=== PATIENT | female | born 1985 | race Caucasian/White ===

== ENCOUNTER 2020-04-01 08:34 | Day surgery (SDC) | payer BC, MEDICAID, SELFPAY ==
[2020-04-01] VITALS (9 sets, daily range): BP systolic 108–118; BP diastolic 61–78; PULSE 58–78; RESP 16–18; TEMP 36.9; O2SAT 95–100; BMI 37.5
--- NOTE | ~2020-04-01 | CT_ITS ---
PROCEDURE: CT-GUIDED BIOPSY CLINICAL INFORMATION: Mastocytosis. COMPARISON: None TECHNIQUE: Following explaining CT fluoroscopy-guided bone marrow biopsy right iliac crest procedure, benefits and risk, a written consent was obtained. Patient was placed prone on fluoroscopy table and preliminary CT imaging was obtained. Lead markers were placed midline along the posterior pelvis and repeat CT imaging was performed. An optimal marker was selected, marked on the skin and area was cleaned and draped in the usual sterile manner. 1% lidocaine was injected at puncture site. A 14-gauge guide needle was advanced through a skin incision to the posterior right iliac crest. The needle was then drilled with a mechanical drill into the bone marrow. Two bone marrow aspirates were obtained as per pathology and handed to the cytotech. Subsequently a coaxial 16-gauge needle was drilled into the bone marrow and core biopsy was performed. Subsequently stylet was reintroduced and the needle withdrawn. Patient tolerated procedure extremely well. Conscious sedation was administered with Versed and fentanyl. Patient was monitored for [address] examination was performed using dose optimization techniques as appropriate, variously including the following: *Automated exposure control *Adjustment of mA and/or kV according to patient size (this includes techniques or standardized protocols for targeted exams where dose is matched to indication/reason for exam; i.e. extremities or head) *Use of iterative reconstruction technique DLP: 324 mGy-cm FINDINGS: On preliminary CT imaging there is no bony abnormality involving the visualized lower lumbar spine, sacrum and iliac bones. The soft tissues are normal. The bladder is unremarkable. Successful CT fluoroscopy-guided right posterior iliac bone marrow biopsy and aspirate performed with a mechanical drill. There were no immediate complications. CT/CT biopsy bone marrow IMPRESSION: Successful CT fluoroscopy-guided right posterior iliac bone marrow biopsy and aspirate was performed.
[2020-04-01 09:39] LABS: MANUAL DIFF FLAG NO
[2020-04-01 09:42] LABS: Basophils Percent Auto 0.4 % (0-2); Eosinophils Absolute Auto 0.1 X10*3/uL (0.0-0.4); Eosinophils Percent Auto 1.6 % (0-4); Hemoglobin 12.9 g/dl (12.0-16.0); Imm Gran Abs Auto 0.01 X10*3/uL (0.00-0.03); Imm Gran Pct Auto 0.2 % (0.0-0.4); Lymphocytes Absolute Auto 1.5 X10*3/uL (1.2-4.9); Lymphocytes Percent Auto 26.5 % (20-40); Mean Corpuscular HGB Conc 33.9 g/dl (31.0-35.0); Mean Corpuscular Hemoglobin 30.7 pg (27.0-33.0); Mean Corpuscular Volume 90.5 fL (80-98); Monocytes Absolute Auto 0.5 X10*3/uL (0.1-1.2); Monocytes Percent Auto 8.7 % (2-11); Neutrophils Absolute Auto 3.5 X10*3/uL (2.0-8.3); Neutrophils Percent Auto 62.6 % (45-73); Platelet Count 235 X10*3/uL (160-400); Red Cell Distribution Width 12.6 % (11.0-16.0); White Blood Count 5.7 X10*3/uL (4.8-10.8)
[2020-04-01 09:47] LABS: INTERNATIONAL NORM RATIO 1.1 (0.9-1.1); Prothrombin Time 12.8 SEC (10.8-13.0)
[2020-04-01 09:50] LABS: Partial Thromboplastin Time 34.8 SEC (24.1-38.0)
[2020-04-01 10:07] LABS: Anion Gap 11 (12-20); Carbon Dioxide 28 mmol/L (22-29); Chloride 104 mmol/L (96-108); Potassium 3.9 mmol/L (3.3-5.1); Sodium 139 mmol/L (135-145)
[2020-04-01] MEDS: Lidocaine HCl 1 % MPF 5 ML VIAL 10 ML SUBCUT (12:09)
[2020-04-01 12:19] LABS: Bone Marrow SEE SEPARATE REPORT
[2020-04-01] MEDS: diphenhydrAMINE HCL 25 MG TABLET PO (14:10)
== END 2020-04-01 15:10 | disposition home or self-care (01) ==
PROVIDERS: Internal Medicine; Radiology Diagnostic Radiology; PCP Internal Medicine; Visit Provider Radiology Diagnostic Radiology
PROC: (CPT 38221; principal; 2020-04-01 10:30)
DX: D47.09 Other mast cell neoplasms of uncertain behavior (principal); J45.40 Moderate persistent asthma, uncomplicated; R53.83 Other fatigue; F41.9 Anxiety disorder, unspecified; Z85.41 Personal history of malignant neoplasm of cervix uteri; Z79.899 Other long term (current) drug therapy; Z88.8 Allergy status to other drugs, medicaments and biological substances
CPT/HCPCS: 36415; 38221; 38222; 80051; 81272; 85025; 85097; 85610; 85730; 88184; 88185; 88237; 88264; 88280; 88300; 88305; 88311; 88313; 88341; 88342; 99152; J1642; J2250; J3010; Q0163

== ENCOUNTER 2020-05-10 14:03 | Outpatient (REF) | payer BC, MEDICAID, SELFPAY ==
[2020-05-10 15:31] LABS: MANUAL DIFF FLAG NO
[2020-05-10 15:36] LABS: Basophils Percent Auto 0.4 % (0-2); Eosinophils Percent Auto 0.3 % (0-4); Hematocrit 38.1 % (37-47); Hemoglobin 12.9 g/dl (12.0-16.0); Imm Gran Abs Auto 0.01 X10*3/uL (0.00-0.03); Imm Gran Pct Auto 0.1 % (0.0-0.4); Lymphocytes Absolute Auto 2.3 X10*3/uL (1.2-4.9); Lymphocytes Percent Auto 24.8 % (20-40); Mean Corpuscular HGB Conc 33.9 g/dl (31.0-35.0); Mean Corpuscular Hemoglobin 30.1 pg (27.0-33.0); Mean Platelet Volume 8.6 fL (9.4-12.3); Monocytes Absolute Auto 0.6 X10*3/uL (0.1-1.2); Monocytes Percent Auto 6.8 % (2-11); Neutrophils Absolute Auto 6.1 X10*3/uL (2.0-8.3); Neutrophils Percent Auto 67.6 % (45-73); Platelet Count 289 X10*3/uL (160-400); Red Blood Count 4.28 X10*6/uL (4.20-5.50); Red Cell Distribution Width 12.9 % (11.0-16.0); White Blood Count 9.1 X10*3/uL (4.8-10.8)
[2020-05-10 15:59] LABS: Alanine Aminotransferase 25 U/L (0-31); Albumin Level 4.7 g/dL (3.5-5.0); Alkaline Phosphatase 68 U/L (39-117); Anion Gap 16 (12-20); Aspartate Amino Transferase 13 U/L (5-31); Bilirubin Total 0.3 mg/dL (0.0-1.0); Blood Urea Nitrogen 10 mg/dL (9-16); Calcium 9.8 mg/dL (8.4-10.2); Carbon Dioxide 23 mmol/L (22-29); Chloride 104 mmol/L (96-108); Estimated Glomerular Filt Rate > 60; Glucose Random 100 mg/dL (60-115); Potassium 3.7 mmol/L (3.3-5.1); Sodium 139 mmol/L (135-145); Total Protein 7.7 g/dL (6.5-8.0)
[2020-05-10 16:22] LABS: Ferritin 48 ng/mL (10-122)
[2020-05-10 16:30] LABS: Erythrocyte Sedimentation Rate 9 MM/HR (0-20)
[2020-05-10 16:33] LABS: Folate 13.6 ng/mL (> or = 4.0); Vitamin B12 497 pg/mL (200-900)
[2020-05-11 04:23] LABS: HBsAGNum1 0.17 S/CO (0.00-0.99); Hepatitis B Surface Antigen Negative (Negative)
[2020-05-11 04:34] LABS: HBc Num1 0.08 S/CO (0.00-0.79); Hepatitis B Core Antibody Nonreactive (Nonreactive); ~HepC Num1 0.07 S/CO (0.00-0.79); ~Hepatitis B Surface Antibody REACTIVE (Nonreactive); ~Hepatitis C Antibody Nonreactive (Nonreactive)
[2020-05-11 13:56] LABS: IgA 222 mg/dL (47-310); IgG 1189 mg/dL (600-1640); IgM 125 mg/dL (50-300)
[2020-05-11 21:07] LABS: Transglutaminase Ab IgG 1 U/mL; Transglutaminase IgA 1 U/mL
[2020-05-12 00:16] LABS: Immunoglobulin G Subclass 1 529 mg/dL (382-929); Immunoglobulin G Subclass 2 350 mg/dL (241-700); Immunoglobulin G Subclass 3 56 mg/dL (22-178); Immunoglobulin G Subclass 4 67.2 mg/dL (4-86); Immunoglobulin G Total 1097 mg/dL (600-1640)
[2020-05-12 08:56] LABS: Hepatitis A Antibody IgM 0.15 Index (0-0.79); ~Hepatitis A Antibody IgM Nonreactive (Nonreactive)
[2020-05-12 13:52] LABS: Gliadin Deamidated IgA Ab 3 Units; Gliadin Deamidated IgG Ab 2 Units
[2020-05-13 01:02] LABS: Zinc 77 mcg/dL (60-130)
[2020-05-13 11:21] LABS: Nicotinamide 20 ng/mL; Vit B3 - Nicotinic Acid <20 ng/mL
[2020-05-13 16:36] LABS: Vitamin B6 19.1 ng/mL (2.1-21.7)
[2020-05-13 18:11] LABS: Vitamin C 0.7 mg/dL (0.3-2.7)
[2020-05-14 16:12] LABS: Vitamin K1 166 pg/mL (130-1500)
[2020-05-14 18:11] LABS: Vitamin A 53 mcg/dL (38-98)
[2020-05-15 14:31] LABS: Vitamin B5 (Pantothenic Acid) 101 ng/mL (<275)
[2020-05-17 10:57] LABS: Alpha-Tocopherol 10.9 mg/L (5.7-19.9); Beta-Gamma Tocopherol <1.0 mg/L (<=4.3)
== END 2020-05-10 14:04 | disposition home or self-care (01) ==
LOC: HO.LAB 14:03
PROVIDERS: PCP Family Medicine; Visit Provider Internal Medicine Gastroenterology
DX: R10.33 Periumbilical pain (principal); D47.09 Other mast cell neoplasms of uncertain behavior; G89.29 Other chronic pain
CPT/HCPCS: 36415; 80053; 82180; 82306; 82607; 82728; 82746; 82784; 83516; 84207; 84446; 84590; 84591; 84597; 84630; 85025; 85652; 86003; 86704; 86706; 86709; 86803; 87340

== ENCOUNTER 2020-05-10 18:00 | Outpatient (REF) | payer BC, MEDICAID, SELFPAY | END 2020-05-10 18:01 | disposition home or self-care (01) | LOC: HO.LNP 18:00 | PROVIDERS: Visit Provider Internal Medicine Gastroenterology | DX: D47.9 Neoplasm of uncertain behavior of lymphoid, hematopoietic and related tissue, unspecified (principal) | CPT/HCPCS: 87177; 87209; 87329 ==

== ENCOUNTER 2020-05-11 14:00 | Outpatient (REF) | payer BC, MEDICAID, SELFPAY ==
[2020-05-12 13:09] LABS: CDIFF Ag Negative (Negative); CDIFF Internal ctrl Dots and bkg OK (V); CDiff Toxin Negative (Negative)
== END 2020-05-11 14:01 | disposition home or self-care (01) ==
LOC: HO.LNP 14:00
PROVIDERS: Visit Provider Internal Medicine Gastroenterology
DX: D47.09 Other mast cell neoplasms of uncertain behavior (principal)
CPT/HCPCS: 87324; 87449

== ENCOUNTER 2020-05-12 10:08 | Outpatient (REF) | payer BC, MEDICAID, SELFPAY ==
[2020-05-15 07:41] LABS: Fecal Fat Qualitative Normal (Normal)
[2020-05-18 21:36] LABS: Calprotectin, Fecal 18 mcg/g
[2020-05-21 00:16] LABS: Pancreatic Elastase-1 >500 mcg/g
== END 2020-05-12 10:09 | disposition home or self-care (01) ==
LOC: HO.LNP 10:08
PROVIDERS: Visit Provider Internal Medicine Gastroenterology
DX: D47.09 Other mast cell neoplasms of uncertain behavior (principal)
CPT/HCPCS: 82656; 82705; 83993; 87015; 87272

== ENCOUNTER 2020-06-21 08:03 | Day surgery (SDC) | payer BC, MEDICAID, SELFPAY ==
[2020-06-16 11:59] VITALS: BMI 36.3
--- NOTE | 2020-06-17 14:16 | P.CONAN_ITS ---
Documented by User: Lacy Joaquina 06/17/20 14:17 HPI - Anesthesia Eval Consult details Narrative: 34yo F for Upper Endoscopy and Colonoscopy PMFSH Active Problems Active Problems: All Active Problems (Updated 03/29/20 @ 14:49 by Cinthya Velasquez MD) Mast cell disease (Chronic) Past Medical History Medical History Abdominal distension Allergic rhinitis Anxiety Dermatographic urticaria Fibromyalgia Flushing Idiopathic urticaria Mast cell activation, unspecified Moderate persistent asthma Other chronic allergic conjunctivitis Other fatigue Family History Family History Father Heart disease Hyperlipidemia HTN (hypertension) Mother Skin cancer Cervical cancer Maternal Grandmother Enlarged heart Primary bone cancer Family/Other Brain cancer Family/Other Leukemia Family/Other Testicular adenoma Paternal Aunt Breast cancer Paternal Grandfather Heart attack Brother Heart disease Paternal Grandmother Congestive heart failure Pacemaker Family/Other Meniere disease Surgical History Surgical History (Updated 06/16/20 @ 11:49 by Maria Teresa Mcfarlane) History of bone marrow biopsy Hx of hysterectomy Social History Social History (Updated 06/16/20 @ 11:55 by Maria Teresa Mcfarlane) Household Members: Significant Other and Children Alcohol intake: current Alcohol intake frequency: holidays/special occasions only Smoking Status: Former smoker Tobacco Type: Cigarette Years Smoked: 9 Smoking Quit Date: 2011 Use of substances other than those prescribed or required for medical reasons: No Have you been hit, kicked, punched, or otherwise hurt by someone within the past year? If so, by whom?: No Advance Directives Information Provided: No Meds Allergies Allergy/AdvReac Type Severity Reaction Status Date / Time aspirin Allergy Intermediate Hives Verified 06/16/20 11:53 fluticasone Allergy Intermediate Hives Verified 06/16/20 11:53 [From Flovent Diskus] hydrocodone [Vicodin] Allergy Intermediate Hives Verified 06/16/20 11:53 tramadol AdvReac Intermediate Agitated Verified 06/16/20 11:53 Home Medications Medication Instructions Recorded Confirmed Last Taken Type acetaminophen [Tylenol Extra 500 mg PO Q6H PRN 03/29/20 06/16/20 Unknown History Strength] albuterol 90 mcg INHALATION Q4-6H 03/29/20 06/16/20 Unknown History albuterol sulfate 2.5 mg INHALATION Q4-6H PRN 03/29/20 06/16/20 Unknown History cromolyn 200 mg PO QID 03/29/20 06/16/20 Unknown History cyproheptadine 4 mg PO BEDTIME 03/29/20 06/16/20 Unknown History diphenhydramine HCl [Benadryl] 25 mg PO Q6H PRN 03/29/20 06/16/20 Unknown History epinephrine [EpiPen 2-Saeed] 0.3 mg IM Q10M PRN 03/29/20 06/16/20 Unknown History famotidine [Pepcid] 20 mg PO BID 03/29/20 06/16/20 Unknown History fluticasone propionate [Flovent 1 puff INHALATION BID 03/29/20 06/16/20 Unknown History HFA] hydroxyzine HCl 25 mg PO TID 03/29/20 06/16/20 Unknown History levocetirizine [Xyzal] 5 mg PO BID 03/29/20 06/16/20 Unknown History omalizumab [Xolair] 150 mg SUBCUT Q2W 03/29/20 06/16/20 Unknown History trazodone 50 mg PO BEDTIME 03/29/20 06/16/20 Unknown History Exam Exam Date and Time: June 17, 2020 1416 Height,Weight and Vital Signs: Height 5 ft 3 in Weight 92.986 kg Assessment and Plan Assessment Anesthesia Assessment: Chart Reviewed Documented by User: Tereza Llamas 06/21/20 09:13 PMFSH Past Medical History Medical History Abdominal distension Allergic rhinitis Anxiety Dermatographic urticaria Fibromyalgia Flushing Idiopathic urticaria Mast cell activation, unspecified Moderate persistent asthma Other chronic allergic conjunctivitis Other fatigue Family History Family History Father Heart disease Hyperlipidemia HTN (hypertension) Mother Skin cancer Cervical cancer Maternal Grandmother Enlarged heart Primary bone cancer Family/Other Brain cancer Family/Other Leukemia Family/Other Testicular adenoma Paternal Aunt Breast cancer Paternal Grandfather Heart attack Brother Heart disease Paternal Grandmother Congestive heart failure Pacemaker Family/Other Meniere disease Surgical History Surgical History (Updated 06/16/20 @ 11:49 by Maria Teresa Mcfarlane) History of bone marrow biopsy Hx of hysterectomy Social History Social History (Updated 06/16/20 @ 11:55 by Maria Teresa Mcfarlane) Household Members: Significant Other and Children Alcohol intake: current Alcohol intake frequency: holidays/special occasions only Smoking Status: Former smoker Tobacco Type: Cigarette Years Smoked: 9 Smoking Quit Date: 2011 Use of substances other than those prescribed or required for medical reasons: No Have you been hit, kicked, punched, or otherwise hurt by someone within the past year? If so, by whom?: No Advance Directives Information Provided: No Meds Allergies Allergy/AdvReac Type Severity Reaction Status Date / Time aspirin Allergy Intermediate Hives Verified 06/16/20 11:53 fluticasone Allergy Intermediate Hives Verified 06/16/20 11:53 [From Flovent Diskus] hydrocodone [Vicodin] Allergy Intermediate Hives Verified 06/16/20 11:53 tramadol AdvReac Intermediate Agitated Verified 06/16/20 11:53 Home Medications Medication Instructions Recorded Confirmed Last Taken Type acetaminophen [Tylenol Extra 500 mg PO Q6H PRN 03/29/20 06/16/20 Unknown History Strength] albuterol 90 mcg INHALATION Q4-6H 03/29/20 06/16/20 Unknown History albuterol sulfate 2.5 mg INHALATION Q4-6H PRN 03/29/20 06/16/20 Unknown History cromolyn 200 mg PO QID 03/29/20 06/16/20 Unknown History cyproheptadine 4 mg PO BEDTIME 03/29/20 06/16/20 Unknown History diphenhydramine HCl [Benadryl] 25 mg PO Q6H PRN 03/29/20 06/16/20 Unknown History epinephrine [EpiPen 2-Saeed] 0.3 mg IM Q10M PRN 03/29/20 06/16/20 Unknown History famotidine [Pepcid] 20 mg PO BID 03/29/20 06/16/20 Unknown History fluticasone propionate [Flovent 1 puff INHALATION BID 03/29/20 06/16/20 Unknown History HFA] hydroxyzine HCl 25 mg PO TID 03/29/20 06/16/20 Unknown History levocetirizine [Xyzal] 5 mg PO BID 03/29/20 06/16/20 Unknown History omalizumab [Xolair] 150 mg SUBCUT Q2W 03/29/20 06/16/20 Unknown History trazodone 50 mg PO BEDTIME 03/29/20 06/16/20 Unknown History Exam Airway Mallampati Class: II TM Dist: >3cm Neck ROM: Full Heart: RRR Lungs: CTA BL Assessment and Plan Assessment Anesthesia Assessment: Anesthesia Plan Discussed and Chart Reviewed Final Anesthetic Review NPO: Yes ASA Class: II Final Preanesthetic Review: No Changes in Pt Med Stat and Consent Obtained/Re viewed Patient Risk: Intermediate Procedure Risk: Intermediate Anesthetic Plan Anesthetic Plan: MAC: Disposition: Standard PACU
[2020-06-21 08:36] VITALS: BP 134/80; PULSE 78; RESP 18; TEMP 36.5; O2SAT 98
--- NOTE | 2020-06-21 09:05 | MHC.SHP ---
Pre-Procedural Eval Section B Chief Complaint: Abdominal Pain Relevant Family History (Specify if Yes): No Relevant Social History: None Present Medications: see Short Stay Collaborative assessment Medical History: Significant History (Abdominal distension Allergic rhinitis Anxiety Dermatographic urticaria Fibromyalgia Flushing Idiopathic urticaria Mast cell activation, unspecified Moderate persistent asthma Other chronic allergic conjunctivitis Other fatigue) History of Previous Operations: Relevant previous surgery/procedure and date(s) (BM biopsy,hysterectomy) Allergies: Allergies Allergy/AdvReac Type Severity Reaction Status Date / Time aspirin Allergy Intermediate Hives Verified 06/16/20 11:53 fluticasone Allergy Intermediate Hives Verified 06/16/20 11:53 [From Flovent Diskus] hydrocodone [Vicodin] Allergy Intermediate Hives Verified 06/16/20 11:53 tramadol AdvReac Intermediate Agitated Verified 06/16/20 11:53 Review of Systems Sugical H&P ROS: Negative: Constitution, Cardiovascular, Respiratory, Neurological, Psychiatric, Hem-Onc, Allergic/Immunologic, Gastrointestinal, Genitourinary, Musculoskeletal, Integumentary, Endocrine and Eyes/Ears/Nose/Throat Exam Surgical H&P Exam: Normal: HEENT, Normal: Heart, Normal: Lungs, Normal: Extremities, Normal: Abdomen, Normal: Skin and Normal: Neurological Plan Diagnosis/Plan: Unchanged I have reviewed the history and physical and performed a pertinent physical examination on my patient. No changes have occurred unless specified.
--- NOTE | 2020-06-21 09:07 | P.BOP_ITS ---
Brief Operative Note Date of Service: 06/21/20 Pre-op diagnosis: abdo pain, concern for mast cell d/o Post-op diagnosis: same Procedure: see op note Surgeon: Elvin Diez MD Anesthesia: MAC Was an Engineering Drawings Checker used for this Procedure?: No Estimated blood loss (mL): 0 Condition: stable Disposition: PACU
--- NOTE | 2020-06-21 09:07 | P.OP_ITS ---
Operative Note Operative Note Date of Service: 06/21/20 Narrative: Operative Information Procedure Description: EGD, Colonoscopy FLEXIBLE TRANSORAL UPPER GASTROINTESTINAL ENDOSCOPY AND COLONOSCOPY PROCEDURE NOTE UPPER ENDOSCOPY Consent: Indications for the procedure and potential complications of bleeding, perforation, reaction to medications and missed diagnosis were discussed with the patient and informed consent was obtained. Instrument: Olympus GIF H 190 J mid size upper endoscope Monitoring: Vital signs and clinical assessment, continuous EKG monitoring, Pulse oximetry, Carbon Dioxide monitoring and blood pressure monitoring were done throughout the procedure. Procedure: The patient was placed in the left lateral decubitis position and pre-procedure medications were administered and a bite block was placed. The endoscope was inserted into the mouth and advanced under direct vision to the third part of duodenum. A careful inspection was made as the upper endoscope was withdrawn including a retroflexed examination of the proximal stomach; Findings and interventions are described below. Findings: Larynx:normal Esophagus: GE junction at 37 cm, diaphragm hiatus at 37 cm, normal mucosa --random esophagus bx taken Stomach: Normal mucosa. Biopsies were obtained. Grade 2 flap valve on retroflexed examination of the cardia. Duodenum: Normal bulb and descending duodenum, bx taken Intervention: Biopsies as noted above COLONOSCOPY Instrument: Olympus variable stiffness pediatric scope 190L Colonoscopy Monitoring: Vital signs and clinical assessment, continuous EKG monitoring, Pulse oximetry, Carbon Dioxide monitoring and blood pressure monitoring were done throughout the procedure. Colon withdrawal time was 10 minutes. Procedure: The patient was placed in the left lateral decubitis position and pre-procedure medications were administered. After a digital rectal examination of the ano-rectum, the video colonoscope was inserted into the rectum and advanced through the colon to the cecum/TI. The colonoscope was slowly withdrawn in a retrograde panoramic fashion and the colon mucosa was carefully examined including a retroflexed view of the rectum. Findings and interventions are described below. Procedure Difficulty:easy Findings: bx taken from TI, right colon, left colon and rectum in separate jars Terminal Ileum-normal Cecum: 6-8 mm sessile polyp removed with forceps Ascending Colon: normal Transverse Colon -normal Descending Colon:normal Sigmoid Colon: normal Rectum: Retroflexion with small internal hemorrhoids, grade I Anorectum - normal Colon preparation: Prospect Bowel Preparation Scale Right colon; 3 Transverse colon: 3 Left colon; 2 (0 = Unprepared colon segment with mucosa not seen due to solid stool that cannot be cleared. 1 = Portion of mucosa of the colon segment seen, but other areas of the colon segment not well seen due to staining, residual stool and/or opaque liquid. 2 = Minor amount of residual staining, small fragments of stool and/or opaque liquid, but mucosa of colon segment seen well. 3 = Entire mucosa of colon segment seen well with no residual staining, small fragments of stool or opaque liquid) Impression and Post Procedure Diagnosis: Endoscopy Findings: normal Colonoscopy Findings: internal hemorrhoids polyp Plan: Await Pathology results Repeat Colonoscopy in 5-7 years if adenomatous polyp or earlier if clinically indicated, otherwise next colonoscopy would be at screening age which is now 45 High fiber diet leaflet avoid straining at stool, epsom salts and sitz bath, anusol supps or cream Above findings were reviewed with the patient and relevant handouts were provided if indicated.
[2020-06-21] MEDS: Lactated Ringers 1,000 ML 20 ML IVCONT (09:14)
[2020-06-21 09:50] VITALS: BP 92/60; PULSE 74; RESP 16; TEMP 36.4; O2SAT 98
[2020-06-21 10:05] VITALS: BP 111/81; PULSE 78; RESP 16; TEMP 36.4; O2SAT 100
== END 2020-06-21 11:03 | disposition home or self-care (01) ==
PROVIDERS: PCP Family Medicine; Visit Provider Internal Medicine Gastroenterology
PROC: (CPT 45380; principal; 2020-06-21 09:10)
DX: R10.9 Unspecified abdominal pain (principal); D12.0 Benign neoplasm of cecum; K20.80 Other esophagitis without bleeding; K64.0 First degree hemorrhoids; K44.9 Diaphragmatic hernia without obstruction or gangrene; D47.09 Other mast cell neoplasms of uncertain behavior; J45.30 Mild persistent asthma, uncomplicated; R53.83 Other fatigue
CPT/HCPCS: 45380; 43239; 88305; 88312; 88313; 88341; 88342

== ENCOUNTER → 2020-07-09 10:03 | Outpatient (BNVA) | payer BC, MEDICAID, SELFPAY | PROVIDERS: Visit Provider Internal Medicine Gastroenterology ==

== ENCOUNTER 2020-09-04 09:00 | Outpatient (REF) | payer BC, MEDICAID, SELFPAY ==
[2020-09-04 09:36] LABS: MANUAL DIFF FLAG NO
[2020-09-04 09:56] LABS: Basophils Percent Auto 0.3 % (0-2); Eosinophils Absolute Auto 0.1 X10*3/uL (0.0-0.4); Eosinophils Percent Auto 0.8 % (0-4); Imm Gran Abs Auto 0.02 X10*3/uL (0.00-0.03); Imm Gran Pct Auto 0.2 % (0.0-0.4); Lymphocytes Absolute Auto 2.7 X10*3/uL (1.2-4.9); Lymphocytes Percent Auto 31.8 % (20-40); Mean Corpuscular HGB Conc 32.5 g/dl (31.0-35.0); Mean Corpuscular Hemoglobin 30.5 pg (27.0-33.0); Mean Corpuscular Volume 93.9 fL (80-98); Mean Platelet Volume 8.2 fL (9.4-12.3); Monocytes Absolute Auto 0.5 X10*3/uL (0.1-1.2); Monocytes Percent Auto 6.1 % (2-11); Neutrophils Absolute Auto 5.2 X10*3/uL (2.0-8.3); Neutrophils Percent Auto 60.8 % (45-73); Platelet Count 253 X10*3/uL (160-400); Red Blood Count 4.26 X10*6/uL (4.20-5.50); Red Cell Distribution Width 13.1 % (11.0-16.0); White Blood Count 8.6 X10*3/uL (4.8-10.8)
[2020-09-04 10:20] LABS: Alanine Aminotransferase 28 U/L (0-31); Albumin Level 4.1 g/dL (3.5-5.0); Alkaline Phosphatase 59 U/L (39-117); Anion Gap 12 (12-20); Aspartate Amino Transferase 11 U/L (5-31); Bilirubin Total 0.4 mg/dL (0.0-1.0); Blood Urea Nitrogen 9 mg/dL (9-16); C Reactive Protein 0.92 mg/dL (< or = 0.50); Calcium 9.5 mg/dL (8.4-10.2); Carbon Dioxide 26 mmol/L (22-29); Chloride 104 mmol/L (96-108); Estimated Glomerular Filt Rate > 60; Glucose Random 98 mg/dL (60-115); Potassium 3.9 mmol/L (3.3-5.1); Sodium 138 mmol/L (135-145); Total Protein 6.9 g/dL (6.5-8.0)
[2020-09-04 10:44] LABS: Ferritin 47 ng/mL (10-122)
[2020-09-04 13:00] LABS: CDiff Gene PCR NEGATIVE (Negative)
[2020-09-08 00:12] LABS: Fecal Fat Qualitative Normal (Normal)
[2020-09-10 20:06] LABS: Calprotectin, Fecal 185 mcg/g
== END 2020-09-04 09:01 | disposition home or self-care (01) ==
LOC: HO.LAB 09:00
PROVIDERS: PCP Internal Medicine; Visit Provider Internal Medicine Gastroenterology
DX: K75.81 Nonalcoholic steatohepatitis (NASH) (principal); R19.7 Diarrhea, unspecified; D47.09 Other mast cell neoplasms of uncertain behavior
CPT/HCPCS: 36415; 80053; 82705; 82728; 83993; 85025; 86140; 87045; 87046; 87493

== ENCOUNTER → 2021-04-25 15:28 | Outpatient (BNVA) | payer BC, MEDICAID, SELFPAY | PROVIDERS: PCP Internal Medicine; Visit Provider Internal Medicine Gastroenterology ==

== ENCOUNTER → 2023-10-17 14:37 | Outpatient (RCR) | payer BC, MEDICAID, SELFPAY ==
[2020-03-29 13:14] VITALS: BP 125/79; PULSE 66; RESP 12; TEMP 37; O2SAT 96; BMI 36.8
--- NOTE | 2020-03-29 13:29 | P.CNHO_ITS ---
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 Patient states that all her life she has had the symptoms but in the last 2 years they have gotten worse. She has history of angioedema, chronic attack area, asthma, allergic rhinitis, body pains and fatigue. She has had extensive workup as well as treatments with her broadcasting equipment mechanic. None of the medications have worked so far. She is here to discuss bone marrow biopsy for further testing. Review of Systems - Constitutional Reports body aches, Reports fatigue, Reports lack of energy, Reports malaise Oncology Screenings - ECOG Performance Status ECOG Performance Status: 0 PMFSH Medical History: Medical History (Last Updated 03/29/20 @ 08:05 by Tereza Glaser) Abdominal distension Allergic rhinitis Anxiety Dermatographic urticaria Fibromyalgia Flushing Idiopathic urticaria Mast cell activation, unspecified Moderate persistent asthma Other chronic allergic conjunctivitis Other fatigue Family History: Family History (Last Updated 03/29/20 @ 13:24 by Tereza Glaser) Father Heart disease Hyperlipidemia HTN (hypertension) Mother Skin cancer Cervical cancer Maternal Grandmother Enlarged heart Primary bone cancer Family/Other Brain cancer Family/Other Leukemia Family/Other Testicular adenoma Paternal Aunt Breast cancer Paternal Grandfather Heart attack Brother Heart disease Paternal Grandmother Congestive heart failure Pacemaker Family/Other Meniere disease Surgical History: Surgical History (Last Updated 03/29/20 @ 08:37 by Tereza Glaser) Hx of hysterectomy Social History: Social History (Last Updated 03/29/20 @ 13:24 by Tereza Glaser) Alcohol History: Alcohol intake: current Alcohol History Details: Alcohol intake frequency: holiday/special occasion Tobacco History: Smoking Status: Former smoker Tobacco Type: Cigarette Years Smoked: 9 Smoked in Last 30 Days: No Smoking Quit Date: 2011 Substance Use History: Use of substances other than those prescribed or required for medical reasons : No Smoking status: Former smoker Home Medications and Allergies Home Medications Medication Instructions Recorded Confirmed Type acetaminophen [Tylenol Extra 500 mg PO Q6H PRN 03/29/20 03/29/20 History Strength] albuterol 90 mcg INHALATION Q4-6H 03/29/20 03/29/20 History albuterol sulfate 2.5 mg INHALATION Q4-6H PRN 03/29/20 03/29/20 History cromolyn 200 mg PO QID 03/29/20 03/29/20 History cyproheptadine 4 mg PO BEDTIME 03/29/20 03/29/20 History diphenhydramine HCl [Benadryl] 25 mg PO Q6H PRN 03/29/20 03/29/20 History epinephrine [EpiPen 2-Saeed] 0.3 mg IM Q10M PRN 03/29/20 03/29/20 History famotidine [Pepcid] 20 mg PO BID 03/29/20 03/29/20 History fluticasone propionate [Flovent 1 puff INHALATION BID 03/29/20 03/29/20 History HFA] hydroxyzine HCl 25 mg PO TID 03/29/20 03/29/20 History levocetirizine [Xyzal] 5 mg PO BID 03/29/20 03/29/20 History omalizumab [Xolair] 150 mg SUBCUT Q2W 03/29/20 03/29/20 History trazodone 50 mg PO BEDTIME 03/29/20 03/29/20 History Allergies Allergy/AdvReac Type Severity Reaction Status Date / Time acetaminophen [Vicodin] Allergy Unknown Hives Verified 03/29/20 13:26 hydrocodone [Vicodin] Allergy Unknown Hives Verified 03/29/20 13:26 aspirin Allergy Hives Verified 03/29/20 13:26 tramadol AdvReac Agitated Verified 03/29/20 13:26 Physical Exam Vital signs: Vital Signs Temp 98.6 F 03/29/20 13:14 Pulse 66 03/29/20 13:14 Resp 12 03/29/20 13:14 BP 125/79 03/29/20 13:14 Pulse Ox 96 03/29/20 13:14 Intake & Output 03/28/20 03/29/20 03/29/20 18:59 06:59 18:59 Other: Weight 94.4 kg [place] Weight in Grams 55617 Weight 94.4 kg - Constitutional Present: no acute distress - Routine HEENT Exam Head: Present: normal inspection Eye: Present: EOMI - Routine Neck Exam Present: supple. Absent: lymphadenopathy - Routine Respiratory Exam Absent: respiratory distress - Routine Cardiovascular Exam Cardiovascular: Present: S1, S2 - Routine Skin Exam Present: erythema Assessment and Plan (1) Mast cell disease Status: Chronic 1. This is a 34-year-old woman diagnosed with probable mast cell disorder referred for diagnostic bone marrow aspiration/biopsy. She has had extensive workup with her allergy/decator operator and found to have elevated urine N methyl histamine. She has normal tryptase level, serum KIT D816 mutation negative, normal CBC in February 2019. Today we discussed performing diagnostic bone marrow aspiration/biopsy. Based on her body habitus and preference for IV sedation, she is being scheduled for this procedure under CT guidance by intervention Radiology. I discussed possible complications of procedures such as risk of bleeding, pain and sometimes lack of adequate biopsy specimen. Results will be sent to her specialists. I thank you for this referral.
--- NOTE | 2020-03-29 14:18 | MHC.HEMONCMA ---
Patient came in for a consult for mastocytosis. Patient states she is doing ok. I went through her chart thoroughly and made sure everything was updated and correct. She needs to have a bone marrow biopsy which Dr Velasquez ordered and asked for me to set up. I will be calling [facility] to set this up and i will call the patient to let her know the time and date of the procedure.
--- NOTE | 2020-03-29 14:41 | MHC.HEMONCMA ---
Called and spoke with Ava from Radiology to schedule the bone marrow biopsy. It has been placed in pending, they will call back with a date and time .
--- NOTE | 2020-03-29 14:50 | MHC.HEMONCMA ---
Bone marrow biopsy requires a referral/auth. Order printed out and given to Kirsten for authorization.
--- NOTE | 2020-03-29 15:33 | MHC.HEMONCSW ---
CT GUIDED BONE MARROW BX DOES NOT REQUIRE PRIOR AUTH. REFERENCE # [id number].
--- NOTE | 2020-03-30 08:48 | MHC.HEMONCMA ---
Called and spoke to Ava from Radiology, I let her know that Kirsten tried to get a PA but her insurance states she does not [place] [id number].
--- NOTE | 2020-03-31 14:03 | MHC.HEMONCMA ---
Patient scheduled for 03/31/2020 at 10:30 with a 9am arrival, she needs to be NPO for 6 hours before and needs to have a garbage collector driver. Called and spoke with patient and let her know the date and time. She is aware and will have a garbage collector driver.
--- NOTE | 2020-04-02 09:53 | MHC.HEMONC ---
pt called with pain #7/#10 right hip s/p BMB in OR yesterday. She has tried ES Tylenol a few times without satisfactory relief. I spoke to Dr Velasquez. Pt to try Ibuprofen 600mg three times daily with food for a couple days. She is to call us with any ongoing issues. I gave her procedure for calling over the weekend.
== END | disposition home or self-care (01) ==
LOC: HO.ONC 03-29 12:51
PROVIDERS: PCP Internal Medicine; Referring Provider Pediatrics; Visit Provider Internal Medicine
DX: L50.1 Idiopathic urticaria (principal); R82.998 Other abnormal findings in urine
CPT/HCPCS: 99203